=== PATIENT | female | born 1965 | race Caucasian/White ===

== ENCOUNTER 2020-07-12 18:18 | Inpatient (IN) ==
[2020-07-12] MEDS ORDERED: Aspirin 81 MG TAB.CHEW PO ONE (18:26)
[2020-07-12 18:59] LABS: Basophils % 0.5 %; Eosinophils % 0.2 %; Hematocrit 52.9 % (35.3-44.9); Hemoglobin 16.9 g/dL (11.5-15.4); Immature Granulocytes % 0.4 % (0-4); Lymphocytes # 1.6 K/mcL (0.6-4.6); Lymphocytes % 28.9 %; Mean Corpuscular HGB Conc 31.9 g/dL (31.6-35.5); Mean Corpuscular Volume 84.6 fL (83.0-100.0); Monocytes # 0.5 K/mcL (0.0-1.3); Monocytes % 8.7 %; Neutrophils # 3.5 K/mcL (1.6-8.9); Platelet Count 200 K/mcL (140-400); Red Blood Count 6.25 M/mcL (3.82-4.97); Red Cell Distribution Width 14.6 % (11.5-14.5); Segmented Neutrophils % 61.3 %; White Blood Count 5.6 K/mcL (4.3-11.1)
[2020-07-12 19:01] LABS: INR 1.1; Prothrombin Time 12.7 Seconds (9.4-12.1)
[2020-07-12 19:04] LABS: Activated Partial Thrombo Time 29.7 Seconds (26.0-36.0)
[2020-07-12 19:20] LABS: BUN/Creatinine Ratio 15 (6-26); Blood Urea Nitrogen 16 mg/dL (6-20); Calcium 9.2 mg/dL (8.6-10.3); Carbon Dioxide 27 mEq/L (23-29); Chloride 99 mEq/L (98-107); Glucose 135 mg/dL (70-105); Osmolality,Calculated 283 (280-300); Potassium 3.4 mEq/L (3.5-5.1); Sodium 135 mEq/L (136-145); Troponin I < 0.03 ng/mL (< 0.04); eGFR For African Americans > 60 (> 60); eGFR For Non-African Americans 53 (> 60)
[2020-07-12] MEDS ORDERED: Ipratropium 1 PUFF INHALER IH ONE (19:48)
[2020-07-12] MEDS ORDERED: methylPREDNISolone 125 MG/2 ML VIAL IVP ONE (19:48)
[2020-07-12] MEDS ORDERED: *HR* FentaNYL (PF) 100 MCG/2 ML VIAL IVP ONE (19:49)
[2020-07-12] MEDS ORDERED: Isovue-370 500 ML BOTTLE IVP ONE (19:50)
[2020-07-12] MEDS ORDERED: 0.9 % Sodium Chloride 1,000 ML IVC ONE (19:51)
[2020-07-12] MEDS ORDERED: Ondansetron 4 MG/2 ML VIAL IVP ONE (20:23)
[2020-07-12] MEDS ORDERED: Ondansetron 4 MG/2 ML VIAL IVP PRN (23:01)
[2020-07-12] MEDS ORDERED: Naloxone 0.4 MG/ML INJ IVP PRN (23:01)
[2020-07-12] MEDS ORDERED: Acetaminophen 325 MG TABLET PO PRN (23:01)
[2020-07-13] MEDS: Ipratropium 1 PUFF INHALER IH SCH ×7 (00:15→23:49)
[2020-07-13 00:57] LABS: Hematocrit 47.8 % (35.3-44.9); Mean Corpuscular Hemoglobin 26.7 pg (28.0-33.3); Mean Corpuscular Volume 83.4 fL (83.0-100.0); Mean Platelet Volume 10.3 fL (9.4-12.4); Platelet Count 183 K/mcL (140-400); Red Blood Count 5.73 M/mcL (3.82-4.97); Red Cell Distribution Width 14.3 % (11.5-14.5); White Blood Count 5.3 K/mcL (4.3-11.1)
[2020-07-13 00:59] LABS: Hemoglobin 15.3 g/dL (11.5-15.4)
[2020-07-13 01:18] LABS: BUN/Creatinine Ratio 21 (6-26); Blood Urea Nitrogen 18 mg/dL (6-20); C-Reactive Protein 24 mg/L (Less than 10); Calcium 8.2 mg/dL (8.6-10.3); Carbon Dioxide 22 mEq/L (23-29); Chloride 104 mEq/L (98-107); Glucose 168 mg/dL (70-105); Osmolality,Calculated 286 (280-300); Potassium 3.7 mEq/L (3.5-5.1); Sodium 135 mEq/L (136-145); eGFR For African Americans > 60 (> 60); eGFR For Non-African Americans > 60 (> 60)
[2020-07-13 01:36] LABS: Estimated Average Glucose 134 mg/dl; Ferritin 374 ng/mL (10-120); Hemoglobin A1C 6.3 %
[2020-07-13 03:43] LABS: Troponin I < 0.03 ng/mL (< 0.04)
[2020-07-13] MEDS ORDERED: D5% in Water 1,000 ML IVC PRN (05:26)
[2020-07-13] MEDS ORDERED: *HR* Dextrose 50 % in Water (Vial) 50 ML VIAL IVP PRN (05:26)
[2020-07-13] MEDS ORDERED: Dextrose Gel 15 GM/37.5 ML TUBE PO PRN ×2 (05:26)
[2020-07-13] MEDS: *HR* Enoxaparin 40 MG/0.4 ML SYRINGE SQ SCH ×2 (05:37→17:33)
[2020-07-13] MEDS: Venlafaxine XR (24 HR) 150 MG CAP.ER.24H PO SCH (09:39)
[2020-07-13] MEDS: Insulin LISPRO 300 UNITS/3 ML VIAL SUBQ SCH ×5 (09:39→17:09)
[2020-07-13] MEDS: Furosemide 20 MG/2 ML VIAL IVP ONE ×2 (13:00→14:47)
[2020-07-13] MEDS ORDERED: Insulin DETEMIR 100 UNIT/ML X5UNITS SUBQ SCH (21:00)
[2020-07-13] MEDS ORDERED: Melatonin 3 MG TABLET PO SCH (21:00)
[2020-07-14 02:36] LABS: Hematocrit 42.7 % (35.3-44.9); Hemoglobin 13.8 g/dL (11.5-15.4); Mean Corpuscular HGB Conc 32.3 g/dL (31.6-35.5); Mean Corpuscular Hemoglobin 27.1 pg (28.0-33.3); Mean Corpuscular Volume 83.9 fL (83.0-100.0); Mean Platelet Volume 10.2 fL (9.4-12.4); Platelet Count 180 K/mcL (140-400); Red Blood Count 5.09 M/mcL (3.82-4.97); Red Cell Distribution Width 14.1 % (11.5-14.5); White Blood Count 9.1 K/mcL (4.3-11.1)
[2020-07-14 02:59] LABS: BUN/Creatinine Ratio 27 (6-26); Blood Urea Nitrogen 24 mg/dL (6-20); Calcium 8.3 mg/dL (8.6-10.3); Carbon Dioxide 23 mEq/L (23-29); Chloride 101 mEq/L (98-107); Glucose 139 mg/dL (70-105); Osmolality,Calculated 282 (280-300); Potassium 3.5 mEq/L (3.5-5.1); Sodium 133 mEq/L (136-145); eGFR For African Americans > 60 (> 60); eGFR For Non-African Americans > 60 (> 60)
[2020-07-14] MEDS: Ipratropium 1 PUFF INHALER IH SCH ×3 (03:58→11:25)
[2020-07-14] MEDS: *HR* Enoxaparin 40 MG/0.4 ML SYRINGE SQ SCH (05:39)
[2020-07-14] MEDS: Insulin LISPRO 300 UNITS/3 ML VIAL SUBQ SCH ×2 (07:20→11:54)
[2020-07-14] MEDS: Venlafaxine XR (24 HR) 150 MG CAP.ER.24H PO SCH (07:28)
[2020-07-14 11:35] VITALS: BP 112/79
== END 2020-07-14 16:18 | disposition home or self-care (01) | DRG 177 ==
LOC: EMEROOARM 18:18 → 2NENU 18:18
PROVIDERS: ADMIT Student in an Organized Health Care Education/Training Program; ATTEND Student in an Organized Health Care Education/Training Program